=== PATIENT | female | born 1965 | race Caucasian/White ===

== ENCOUNTER 2020-01-14 13:14 | Emergency (ER) | payer BC ==
[~2020-01-14] VITALS: Ht 165.1 cm; Wt 57.0 kg
[2020-01-14 14:32] LABS: BASO % 1 % (0-3); EOS # 0.2 x10^3/uL (0.0-0.7); EOS % 3 % (0-3); HEMATOCRIT 39.1 % (36.0-47.0); HEMOGLOBIN 13.5 g/dL (12.0-15.5); LYMPH # 1.8 x10^3/uL (1.0-4.8); LYMPH % 35 % (24-48); MEAN CORPUSCULAR HEMOGLOBIN 34 pg (25-35); MEAN CORPUSCULAR HGB CONC 35 g/dL (31-37); MEAN CORPUSCULAR VOLUME 98 fL (79-100); MONO # 0.4 x10^3/uL (0.0-1.1); MONO % 8 % (0-9); NEUT # 2.7 x10^3/uL (1.8-7.7); NEUT % 53 % (31-73); PLATELET COUNT 218 x10^3/uL (140-400); RED BLOOD COUNT 3.99 x10^6/uL (3.50-5.40); RED CELL DISTRIBUTION WIDTH 12.2 % (11.5-14.5); WHITE BLOOD COUNT 5.2 x10^3/uL (4.0-11.0)
[2020-01-14 14:40] LABS: CALCIUM 10.1 mg/dL (8.5-10.1); CREATININE 0.9 mg/dL (0.6-1.0); GFR 65.8; POTASSIUM 4.1 mmol/L (3.5-5.1)
--- NOTE | 2020-01-14 14:43 | PHYS DOC ---
Past Medical History Past Medical History: No Pertinent History (OSMANI GARNER DO) Past Surgical History: Other Additional Past Surgical Histo: benign tumor removal (OSMANI GARNER DO) Smoking Status: Never Smoker Alcohol Use: Occasionally (OSMANI GARNER DO) General Adult EDM: Chief Complaint: OTHER COMPLAINTS HPI: HPI: Patient is a 54 year old female who presented to ER today for evaluation of burning sensation on the bottom of her left foot, numbness and tingling travelling up to her left leg to INNER PART OF LEFT THIGH AND GROIN AREA started around 10:30 AM this morning. Patient then had episode of spasm in her left leg and left foot. Patient denies any low back pain, denies any bowel or bladder incontinence. Patient has urinated several times today already. Patient is very healthy, she is not on any medication, she not a smoker. Patient is an avid runner. She denies lifting anything heavy recently. Patient denies any abdominal pain, no cough, no fever, no nausea vomiting (OSMANI GARNER DO) Review of Systems: Review of Systems: Constitutional: Denies fever or chills. [] Eyes: Denies change in visual acuity. [] HENT: Denies nasal congestion or sore throat. [] Respiratory: Denies cough or shortness of breath. [] Cardiovascular: Denies chest pain or edema. [] GI: Denies abdominal pain, nausea, vomiting, bloody stools or diarrhea. [] : Denies dysuria. [] Musculoskeletal: Denies back pain or joint pain. Left leg with numbness and burning sensation. Integument: Denies rash. [] Neurologic: Denies headache, focal weakness or sensory changes. [] Endocrine: Denies polyuria or polydipsia. [] Lymphatic: Denies swollen glands. [] Psychiatric: Denies depression or anxiety. [] (OSMANI GARNER DO) Heart Score: Risk Factors: Risk Factors: DM, Current or recent (<one month) smoker, HTN, HLP, family history of CAD, obesity. Risk Scores: Score 0 - 3: 2.5% MACE over next 6 weeks - Discharge Home Score 4 - 6: 20.3% MACE over next 6 weeks - Admit for Clinical Observation Score 7 - 10: 72.7% MACE over next 6 weeks - Early Invasive Strategies (OSMANI GARNER DO) Allergies: Allergies: Allergies Coded Allergies Type Severity Reaction Last Updated Verified No Known Drug Allergies 01/14/20 No (OSMANI GARNER DO) Physical Exam: PE: Constitutional: Well developed, well nourished, no acute distress, non-toxic appearance. [] HENT: Normocephalic, atraumatic, bilateral external ears normal, oropharynx moist, no oral exudates, nose normal. [] Eyes: PERRLA, EOMI, conjunctiva normal, no discharge. [] Neck: Normal range of motion, no tenderness, supple, no stridor. [] Cardiovascular:Heart rate regular rhythm, no murmur [] Lungs & Thorax: Bilateral breath sounds clear to auscultation [] Abdomen: Bowel sounds normal, soft, no tenderness, no masses, no pulsatile masses. [] Skin: Warm, dry, no erythema, no rash. [] Back: No tenderness, no CVA tenderness. [] Extremities: No tenderness, no cyanosis, no clubbing, ROM intact, no edema. [] Neurologic: Alert and oriented X 3, normal motor function, normal sensory function, no focal deficits noted. Equal, symmetrical bilateral patella tendon reflexes. Equal strength and sensation in both lower extremities. Psychologic: Affect normal, judgement normal, mood normal. [] (OSMANI GARNER DO) Current Patient Data: Labs: Laboratory Tests Test 01/14/20 14:25 White Blood Count 5.2 x10^3/uL (4.0-11.0) Red Blood Count 3.99 x10^6/uL (3.50-5.40) Hemoglobin 13.5 g/dL (12.0-15.5) Hematocrit 39.1 % (36.0-47.0) Mean Corpuscular Volume 98 fL (79-100) Mean Corpuscular Hemoglobin 34 pg (25-35) Mean Corpuscular Hemoglobin Concent 35 g/dL (31-37) Red Cell Distribution Width 12.2 % (11.5-14.5) Platelet Count 218 x10^3/uL (140-400) Neutrophils (%) (Auto) 53 % (31-73) Lymphocytes (%) (Auto) 35 % (24-48) Monocytes (%) (Auto) 8 % (0-9) Eosinophils (%) (Auto) 3 % (0-3) Basophils (%) (Auto) 1 % (0-3) Neutrophils # (Auto) 2.7 x10^3/uL (1.8-7.7) Lymphocytes # (Auto) 1.8 x10^3/uL (1.0-4.8) Monocytes # (Auto) 0.4 x10^3/uL (0.0-1.1) Eosinophils # (Auto) 0.2 x10^3/uL (0.0-0.7) Basophils # (Auto) 0.0 x10^3/uL (0.0-0.2) Laboratory Tests 01/14/20 14:25 Vital Signs: Vital Signs Date Time Temp Pulse Resp B/P (MAP) Pulse Ox O2 Delivery O2 Flow Rate FiO2 01/14/20 13:40 97.7 45 17 129/66 (87) 99 Room Air 97.7 (OSMANI GARNER DO) EKG: EKG: [] (OSMANI GARNER DO) Radiology/Procedures: Radiology/Procedures: [][facility] [address] [place] [address] IMAGING REPORT Signed PATIENT: CARLIE DELEON ACCOUNT: [id number] : 1965 LOCATION: ER AGE: 54 SEX: F EXAM STATUS: REG ER ORD. PHYSICIAN: OSMANI GARNER DO REASON: LOWER BACK PAIN, LEFT LEG TINGLING SENSATION PROCEDURE: LUMBAR SPINE 2-3V Examination: LUMBAR SPINE 2-3V History: Reason: LOWER BACK PAIN, LEFT LEG TINGLING SENSATION / Spl. Instructions: / History: Comparison/Correlation: None Findings: Total of 3 images of the lumbar spine were obtained. The vertebral convexity of the lower thoracic and lumbar spine noted. Vertebral body heights are adequate . Disc space narrowing is notable at L4-5. Anterolisthesis of L5 over S1 is present. It is less than grade 1 extent. Possibility of pars interarticularis fractures at L5. Impression: Scoliosis. Disc space narrowing at L4-5. Anterolisthesis of L5 over S1. Possibility of pars interarticularis fracture at L5. Consider further imaging with CT or MRI for more complete assessment. Electronically signed by: Sandeep Salvador MD (01/14/2020 3:10 PM) [id number] DICTATED and SIGNED BY: SANDEPE SALVADOR MD DATE: 01/14/20 1510 [facility] [address] [place] [address] IMAGING REPORT Signed PATIENT: CARLIE DELEON ACCOUNT: [id number] : 1965 LOCATION: ER AGE: 54 SEX: F EXAM STATUS: REG ER ORD. PHYSICIAN: OSMANI GARNER DO REASON: abnormal L-SPINE XRAY, LEFT LEG NUMBNESS PROCEDURE: CT LUMBAR SPINE WO CONTRAST PQRS Compliance Statement: One or more of the following individualized dose reduction techniques were utilized for this examination: 1. Automated exposure control 2. Adjustment of the mA and/or kV according to patient size 3. Use of iterative reconstruction technique CT LUMBAR SPINE WO CONTRAST 01/14/2020 3:27 PM Indication: Left leg numbness with abnormal lumbar spine radiograph COMPARISON: None available. TECHNIQUE: Multiple axial CT images of the lumbar spine were obtained without intravenous contrast. Coronal and sagittal reformats are provided. FINDINGS: There is grade 1 anterolisthesis of L5 on S1. Chronic appearing L5 pars defects are identified. Moderate disc height loss at L4-L5 with endplate sclerosis and vacuum disc phenomena. No acute fractures identified. There is mild disc bulge at L4-L5 with moderate facet arthropathy resulting in moderate bilateral neuroforaminal stenosis. No significant spinal canal stenosis. At L5-S1, there is uncovering of the disc secondary to anterolisthesis. Moderate bilateral neural foraminal stenosis. No spinal canal stenosis. Sacrum and coccyx appear normal. Kidneys are normal in appearance. No hydronephrosis. Limited evaluation for renal masses. Abdominal aorta is normal in caliber. No retroperitoneal lymphadenopathy is identified. Small large bowel are normal in caliber. No bowel obstruction or inflammation. Urinary bladder is within normal limits given degree of distention. Visualized pelvis appears intact. IMPRESSION: No acute fracture of the lumbar spine. Grade 1 anterolisthesis of L5 on S1 with chronic appearing L5 pars defects. Mild lumbar spondylosis centered at L4-L5 and L5-S1. Electronically signed by: Michelle Mayfield MD (01/14/2020 3:46 PM) [facility] (OSMANI GARNER DO) Radiology/Procedures: [facility] [address] [place] [address] IMAGING REPORT Signed PATIENT: CARLIE DELEON ACCOUNT: [id number] : 1965 LOCATION: ER AGE: 54 SEX: F EXAM STATUS: REG ER ORD. PHYSICIAN: OSMANI GARNER DO REASON: LEFT LEG NUMBNESS AND WEAKNESS, ABNORMAL CT/XRAY OF L-SPINE PROCEDURE: LUMBAR SPINE WO CONTRAST Examination: LUMBAR SPINE WO CONTRAST History: LEFT LEG NUMBNESS AND WEAKNESS, ABNORMAL CT/XRAY OF L-SPINE / Comparison/Correlation: CT lumbar spine performed on same day. Findings: Multisequence axial and sagittal images of the lumbar spine were obtained. Alignment is normal. Moderate L4-5 disc space narrowing with desiccation is evident. Slight anterolisthesis of L5 over S1 is present. Bilateral L5 pars interarticularis fractures are present and chronic in appearance. No associated edema identified. Desiccation of the L5-S1 disc is evident. Spinal cord terminates at the T11 level. Neural foramina are patent. There is no nerve root effacement is identified. No spinal canal stenosis. Vertebral body heights are adequate. Bone island involves the right L3 pedicle. Note is made of a small right renal lower pole cyst. Impression: Bilateral chronic L5 pars interarticularis fractures. Minimal anterolisthesis of L5 in relation to S1. Moderate L4-5 disc space narrowing. No disc protrusion, bulge, or extrusion delineated. No nerve root effacement. Electronically signed by: Sandeep Salvador MD (01/14/2020 6:53 PM) [facility] DICTATED and SIGNED BY: SANDEEP SALVADOR MD DATE: 01/14/201852 (ARETHA RIBEIRO DO) Course & Med Decision Making: Course & Med Decision Making Pertinent Labs and Imaging studies reviewed. (See chart for details) Patient is a 54-year-old female who presented to ER due to an acute onset burn ing sensation and pain associated with tingling and numbness on her left foot and left lower extremity, x-ray of her lumbar spine show some L5-S1 disc problem, CT SCAN OR MRI was recommended, CT scan of lumbar spine did not show any acute fracture, She does have No acute fracture of the lumbar spine. Grade 1 anterolisthesis of L5 on S1 with chronic appearing L5 pars defects. Mild lumbar spondylosis centered at L4-L5 and L5-S1. Patient still have pain, spasm, numbness with burning sensation on left foot and left lower extremity, discussed with the radiologist Dr. Michelle Mayfield who recom mended to get STAT MRI of her lumbar spine without contrast. Patient was given 2 mg morphine, 4 mg Decadron and 1 L NS iv bolus. Patient felt much better. This physician discussed with patient that we have to call the computer technologist to come in to perform MRI and It will take several hours for this process to be done. Patient and her are aware of the timeline. Discussed with [employer] packaging technician who will come in to do MRI. Patient's care was endorsed to Dr. Brandt Ribeiro at shift change, pending MRI result. We discussed history and physician exam, pending diagnostic nazario dies.... Her post-void residual was 29 ml. (OSMANI GARNER DO) Course & Med Decision Making I have received signout on the patient's emergency department care from Dr. Garner. We discussed the history, physical exam findings, completed and pending laboratory results and imaging studies. We have also discussed the current treatment plan and expected clinical course. Please refer to further update notes for additional information regarding the patient's final diagnosis and disposition. In brief patient is a 54-year-old female who presents with chief complaint of left lower extremity spasm associated with numbness and tingling of the left lower extremity. Plain film and CT imaging was obtained. It did reveal mild disc bulging at the L4-L5 interspace. Chronic pars defect noted at the L5 space. Given the patient's persistent neurologic symptoms MRI was obtained. No signs of acute spinal cord edema or compression. Moderate foraminal stenosis appreciated. Anterior listhesis of L4 on L5 also noted. No signs of acute neurosurgical emergency on neuroimaging. Post void residual ultrasound performed by previous physician was normal. Patient's neurologic exam on my examination is normal. She states her symptoms have resolved after treatment. She has been able to ambulate without difficulty. At this time I do feel she is appropriate for discharge home. She will be discharged home with a Medrol Dosepak and Flexeril. Encouraged to use anti-inflammatory medication at home as well. She be given referral to a neurosurgeon if her symptoms persist or worsen. Strict return precautions were discussed and understood. Instructed to follow-up with her primary care physician in the next 2 to 3 days. Stable for discharge home. (ARETHA RIBEIRO DO) Dragon Disclaimer: Dragon Disclaimer: This electronic medical record was generated, in whole or in part, using a voice recognition dictation system. (OSMANI GARNER DO) Departure Departure Impression: Primary Impression: Lumbar radiculopathy, acute Disposition: 01 DC HOME SELF CARE/HOMELESS Condition: STABLE Referrals: MEGAN CHOUDHARY MD Patient Instructions: Lumbosacral Radiculopathy Scripts Cyclobenzaprine Hcl (CYCLOBENZAPRINE HCL) 5 Mg Tablet 10 MG PO PRN TID PRN for PAIN, #15 TAB Prov: ARETHA RIBEIRO DO 01/14/20 Methylprednisolone (MEDROL) 4 Mg Tab.ds.pk 1 PKG PO UD, #1 PKG Prov: ARETHA RIBEIRO DO 01/14/20 OSMANI GARNER DO Jan 14, 2020 14:43 ARETHA RIBEIRO DO Jan 14, 2020 19:18
[2020-01-14 14:46] LABS: ALBUMIN 3.8 g/dL (3.4-5.0); ALBUMIN/GLOBULIN RATIO 1.3 (1.0-1.7); MAGNESIUM 2.1 mg/dL (1.8-2.4); TOTAL BILIRUBIN 0.3 mg/dL (0.2-1.0); TOTAL PROTEIN 6.8 g/dL (6.4-8.2)
[2020-01-14 14:55] LABS: FREE T4 0.82 ng/dL (0.76-1.46); THYROID STIM HORMONE (TSH) 0.854 uIU/mL (0.358-3.74)
--- NOTE | 2020-01-14 15:13 | RAD ---
Examination: LUMBAR SPINE 2-3V History: Reason: LOWER BACK PAIN, LEFT LEG TINGLING SENSATION / Spl. Instructions: / History: Comparison/Correlation: None Findings: Total of 3 images of the lumbar spine were obtained. The vertebral convexity of the lower thoracic and lumbar spine noted. Vertebral body heights are adequate . Disc space narrowing is notable at L4-5. Anterolisthesis of L5 over S1 is present. It is less than grade 1 extent. Possibility of pars interarticularis fractures at L5. Impression: Scoliosis. Disc space narrowing at L4-5. Anterolisthesis of L5 over S1. Possibility of pars interarticularis fracture at L5. Consider further imaging with CT or MRI for more complete assessment. Electronically signed by: Sandeep Ritchie MD (01/14/2020 3:10 PM) [id number]
[2020-01-14] MEDS ORDERED: IV NORMAL SALINE 1000ML BAG 1,000 ML IV ONE (15:15)
[2020-01-14] MEDS ORDERED: KETOROLAC 30 MG/ML VIAL. IVP ONE (15:15)
[2020-01-14] MEDS ORDERED: MORPHINE SULFATE 2 MG/ML VIAL. IV ONE (15:30)
[2020-01-14] MEDS ORDERED: DEXAMETHASONE SOD PHOS 4 MG/ML VIAL IVP ONE (15:30)
--- NOTE | 2020-01-14 15:48 | RAD ---
PQRS Compliance Statement: One or more of the following individualized dose reduction techniques were utilized for this examination: 1. Automated exposure control 2. Adjustment of the mA and/or kV according to patient size 3. Use of iterative reconstruction technique CT LUMBAR SPINE WO CONTRAST 01/14/2020 3:27 PM Indication: Left leg numbness with abnormal lumbar spine radiograph COMPARISON: None available. TECHNIQUE: Multiple axial CT images of the lumbar spine were obtained without intravenous contrast. Coronal and sagittal reformats are provided. FINDINGS: There is grade 1 anterolisthesis of L5 on S1. Chronic appearing L5 pars defects are identified. Moderate disc height loss at L4-L5 with endplate sclerosis and vacuum disc phenomena. No acute fractures identified. There is mild disc bulge at L4-L5 with moderate facet arthropathy resulting in moderate bilateral neuroforaminal stenosis. No significant spinal canal stenosis. At L5-S1, there is uncovering of the disc secondary to anterolisthesis. Moderate bilateral neural foraminal stenosis. No spinal canal stenosis. Sacrum and coccyx appear normal. Kidneys are normal in appearance. No hydronephrosis. Limited evaluation for renal masses. Abdominal aorta is normal in caliber. No retroperitoneal lymphadenopathy is identified. Small large bowel are normal in caliber. No bowel obstruction or inflammation. Urinary bladder is within normal limits given degree of distention. Visualized pelvis appears intact. IMPRESSION: No acute fracture of the lumbar spine. Grade 1 anterolisthesis of L5 on S1 with chronic appearing L5 pars defects. Mild lumbar spondylosis centered at L4-L5 and L5-S1. Electronically signed by: Michelle Mayfield MD (01/14/2020 3:46 PM) [facility]
--- NOTE | 2020-01-14 18:56 | RAD ---
Examination: LUMBAR SPINE WO CONTRAST History: LEFT LEG NUMBNESS AND WEAKNESS, ABNORMAL CT/XRAY OF L-SPINE / Comparison/Correlation: CT lumbar spine performed on same day. Findings: Multisequence axial and sagittal images of the lumbar spine were obtained. Alignment is normal. Moderate L4-5 disc space narrowing with desiccation is evident. Slight anterolisthesis of L5 over S1 is present. Bilateral L5 pars interarticularis fractures are present and chronic in appearance. No associated edema identified. Desiccation of the L5-S1 disc is evident. Spinal cord terminates at the T11 level. Neural foramina are patent. There is no nerve root effacement is identified. No spinal canal stenosis. Vertebral body heights are adequate. Bone island involves the right L3 pedicle. Note is made of a small right renal lower pole cyst. Impression: Bilateral chronic L5 pars interarticularis fractures. Minimal anterolisthesis of L5 in relation to S1. Moderate L4-5 disc space narrowing. No disc protrusion, bulge, or extrusion delineated. No nerve root effacement. Electronically signed by: Sandeep Ritchie MD (01/14/2020 6:53 PM) [facility]
[2020-01-14 19:00] VITALS: BP 139/69
[2020-01-14] MEDS ORDERED: METH4TAB2 PO (19:15)
[2020-01-14] MEDS ORDERED: CYCL5TAB PO (19:15)
== END 2020-01-14 19:28 | disposition home or self-care (01) ==
LOC: ER 13:14
DX: M54.16 Radiculopathy, lumbar region (principal); M47.816 Spondylosis without myelopathy or radiculopathy, lumbar region
CPT/HCPCS: 36415; 72100; 72131; 72148; 80053; 83735; 84439; 84443; 85025; 96361; 96374; 96375; 99285; J1100; J2270; J7030